=== PATIENT | female | born 1975 | race Caucasian/White ===

== ENCOUNTER → 2016-07-10 | Outpatient (CLI) | payer MEDICARE, MEDICAID ==
[~2016-07-10] MED LIST: ACIDOPHILUS1 CAP PO; CENTRAL-VITE S1 EACH PO; CLARITIN10 MG PO; DILANTIN100 MG PO; IMITREX25 MG PO; LIPITOR10 MG PO; MIRALAX17 GM PO; MONONESSA 28 T1 EACH PO; NAPROSYN500 MG PO; OMEPRAZOLE20 MG PO; SYNTHROID88 MCG PO
== END | disposition short-term general hospital (02) ==
LOC: CLCARD 09:08
DX: Z48.812 Encounter for surgical aftercare following surgery on the circulatory system (principal); G71.11 Myotonic muscular dystrophy; G47.30 Sleep apnea, unspecified; E66.9 Obesity, unspecified; Z79.899 Other long term (current) drug therapy